=== PATIENT | male | born 1990 | race Caucasian/White ===

== ENCOUNTER 2019-01-08 21:08 | Emergency (ER) | payer OTHER ==
[~2019-01-08] VITALS: Ht 175.3 cm; Wt 88.5 kg
[~2019-01-08 21:08] MED LIST: CONZIP100 MG; ORPH100T PO; TUSSI-PRES LIQ120 ML PO; ZITHROMAX TRI-500 MG PO
[2019-01-09] MEDS ORDERED: CEFUROXIME500 MG PO (02:54)
[2019-01-09] MEDS ORDERED: KETO10TA2 PO (02:54)
== END 2019-01-09 03:39 | disposition home or self-care (01) ==
LOC: ER 21:08
DX: N39.0 Urinary tract infection, site not specified (principal)

== ENCOUNTER 2019-02-01 15:51 | Emergency (ER) | payer OTHER ==
[~2019-02-01] VITALS: Ht 175.3 cm; Wt 90.7 kg
[~2019-02-01 15:51] MED LIST changes: +CEFUROXIME500 MG PO; +KETO10TA2 PO
== END 2019-02-01 18:33 | disposition home or self-care (01) ==
LOC: ER 15:51
DX: M54.5 Low back pain (principal)

== ENCOUNTER 2019-07-13 11:08 | Emergency (ER) | payer OTHER ==
[~2019-07-13] VITALS: Ht 175.3 cm; Wt 92.1 kg
== END 2019-07-13 13:53 | disposition home or self-care (01) ==
LOC: ER 11:08
DX: S00.83XA Contusion of other part of head, initial encounter (principal); W18.09XA Striking against other object with subsequent fall, initial encounter; Y93.89 Activity, other specified; Y92.89 Other specified places as the place of occurrence of the external cause; Y99.8 Other external cause status